=== PATIENT | female | born 1940 | race Caucasian/White ===

== ENCOUNTER 2019-12-23 14:16 | Emergency (ER) | payer MEDICARE, MEDICAID ==
[~2019-12-23] VITALS: Ht 152.4 cm; Wt 63.5 kg
[~2019-12-23 14:16] MED LIST: ASPI-1155 PO; ATENOLOL; GLU500 PO; LISI10TA5 PO; OSCAL PO; PIOG15TA8 PO; SIMV-46 PO
[2019-12-23 14:26] VITALS: BP_SYST 131
--- NOTE | 2019-12-23 14:35 | NUR ---
Patient to ER bed 3 to gown for evaluation. Side rails up. Report given to Paul.
[2019-12-23] MEDS ORDERED: KETOROLAC TROMETHAMINE 60 MG/2 ML VIAL IM ONE (14:45)
--- NOTE | 2019-12-23 14:50 | NUR ---
Patient came to the ER after falling in the store [employer]. Per son, she was shopping and when he returned to her, he found her on the ground. Patient has complaint of left wrist pain from the fall. Patient is able to move her fingers and capillary refills within limits. Able to palpate radial pulse which is within limits. Patient pain describes the pain as aching and 10/10.
--- NOTE | 2019-12-23 15:00 | NUR ---
ER at bedside examining patient.
--- NOTE | 2019-12-23 15:30 | NUR ---
LONG ARM splint applied to LLE. + pulse noted. Capillary refill <3 seconds. Patient has ability to move non-splinted digits. Has sensation present to affected site. Skin color within normal limits. Applied for pain management control.
[2019-12-23 16:07] VITALS: BP_SYST 131
--- NOTE | 2019-12-23 16:08 | NUR ---
Patient given written and verbal discharge instructions and verbalizes understanding. ER MD discussed with patient the results and treatment provided. Patient in stable condition. ID arm band removed. Rx of Motrin and Broadalbin given. Patient educated on pain management and to follow up with PMD. Pain Scale 0/10. Opportunity for questions provided and answered. Medication side effect fact sheet provided.
== END 2019-12-23 16:07 | disposition home or self-care (01) ==
LOC: SED 14:16
DX: S52.592A Other fractures of lower end of left radius, initial encounter for closed fracture (principal); I10 Essential (primary) hypertension; E11.9 Type 2 diabetes mellitus without complications; Z86.73 Personal history of transient ischemic attack (TIA), and cerebral infarction without residual deficits; Z79.899 Other long term (current) drug therapy; Z79.82 Long term (current) use of aspirin; W18.39XA Other fall on same level, initial encounter; Y93.89 Activity, other specified; Y92.89 Other specified places as the place of occurrence of the external cause; Y99.8 Other external cause status
CPT/HCPCS: 29125; 73110; 96372; 99283; J1885

== ENCOUNTER 2020-04-04 10:42 | Outpatient (CLI) | payer MEDICARE, MEDICAID | END 2020-04-04 20:17 | disposition home or self-care (01) | LOC: SLB 10:42 | PROVIDERS: ATTEND Family Medicine | DX: Z01.812 Encounter for preprocedural laboratory examination (principal); I51.7 Cardiomegaly; I25.10 Atherosclerotic heart disease of native coronary artery without angina pectoris; R05 Cough | CPT/HCPCS: 36415; 71046-TC; 83970; 93005 ==